=== PATIENT | female | born 1945 | race Caucasian/White ===

== ENCOUNTER → 2021-02-22 | Outpatient (CLI) | payer MEDICARE ==
[~2021-02-22] MED LIST: AMLODIPINE BESYL5 MG PO; ASPIRIN EC81 MG PO; CRESTOR40 MG PO; ELAVIL 50 MG TA50 MG PO; FUROSEMIDE20 MG PO; GLUCOPHAGE 500500 MG PO; ISOSORBIDE DINI30 MG PO; LEVOTHYROXINE112 MCG PO; LOSARTAN-HCTZ1 EAC1 PO; METOPROLOL TART25 MG PO; NEXIUM40 MG PO; NORVASC 5 MG TAB5 MG PO; PERCOCET 5-3251 EACH PO; PLAVIX 75 MG TA75 MG PO; RANEXA500 MG PO; TRAZODONE HCL150 MG PO; ZANTAC 150 MG150 MG PO
== END ==
LOC: US 11:30
DX: R22.41 Localized swelling, mass and lump, right lower limb (principal)
CPT/HCPCS: 93971

== ENCOUNTER 2021-02-28 13:08 | Observation (INO) | payer MEDICARE ==
[~2021-02-28] VITALS: Ht 167.6 cm; Wt 90.7 kg
[~2021-02-28 13:08] MED LIST changes: -AMLODIPINE BESYL5 MG PO; -ASPIRIN EC81 MG PO; -PERCOCET 5-3251 EACH PO
[2021-02-28 15:13] LABS: HEMOGLOBIN 13.2 gm/dl (12.3-15.3); RED BLOOD COUNT 4.36 M/UL (4.00-5.10); WHITE BLOOD COUNT 7.8 K/UL (4.5-11.0)
[2021-02-28 15:44] LABS: BUN/CREATININE RATIO 19 (0-10)
[2021-02-28] MEDS ORDERED: FUROSEMIDE20 MG PO (20:00)
[2021-02-28] MEDS ORDERED: AMLODIPINE BESYL5 MG PO (20:05)
[2021-02-28] MEDS ORDERED: ASPIRIN EC81 MG PO (20:09)
[2021-03-01 04:01] LABS: HEMOGLOBIN 11.6 gm/dl (12.3-15.3); WHITE BLOOD COUNT 6.8 K/UL (4.5-11.0)
[2021-03-01 04:07] LABS: RED BLOOD COUNT 3.9 M/UL (4.00-5.10)
[2021-03-01 04:26] LABS: BUN/CREATININE RATIO 19 (0-10)
[2021-03-01] MEDS ORDERED: PERCOCET 5-3251 EACH PO (17:05)
== END 2021-03-01 17:18 | disposition home or self-care (01) ==
LOC: ER1 13:08 → CDU 17:33 → M/S 17:33
PROVIDERS: Emergency Medicine; Physician Assistant Medical; ADMIT Internal Medicine
DX: I25.119 Atherosclerotic heart disease of native coronary artery with unspecified angina pectoris (principal); S86.011A Strain of right Achilles tendon, initial encounter; E11.9 Type 2 diabetes mellitus without complications; I10 Essential (primary) hypertension; E78.5 Hyperlipidemia, unspecified; J44.9 Chronic obstructive pulmonary disease, unspecified; I65.29 Occlusion and stenosis of unspecified carotid artery; Z95.5 Presence of coronary angioplasty implant and graft; Z85.43 Personal history of malignant neoplasm of ovary; Z86.16 Personal history of COVID-19; Z87.891 Personal history of nicotine dependence; Z88.0 Allergy status to penicillin; Z88.2 Allergy status to sulfonamides; Z79.82 Long term (current) use of aspirin; Z79.02 Long term (current) use of antithrombotics/antiplatelets; Z79.899 Other long term (current) drug therapy; Z20.822 Contact with and (suspected) exposure to COVID-19; X58.XXXA Exposure to other specified factors, initial encounter
CPT/HCPCS: ECHO; 36415; 73590; 73610; 73630; 73718; 78452; 80048; 80053; 82550; 82553; 82962; 83036; 83735; 83874; 83880; 84484; 85025; 85027; 85379; 93005; 93017; 93306; 96374; 96376; 99285; G0378; J2270; J2785; Q9967; U0002

== ENCOUNTER → 2021-07-20 | Outpatient (CLI) | payer MEDICARE ==
[~2021-07-20] MED LIST changes: +AMLODIPINE BESYL5 MG PO; +ASPIRIN EC81 MG PO; +PERCOCET 5-3251 EACH PO
== END ==
LOC: NM 09:00
DX: R06.02 Shortness of breath (principal); R00.2 Palpitations; R60.0 Localized edema; I11.0 Hypertensive heart disease with heart failure; I50.9 Heart failure, unspecified; E78.49 Other hyperlipidemia; R07.9 Chest pain, unspecified; I48.0 Paroxysmal atrial fibrillation; I25.5 Ischemic cardiomyopathy; R55 Syncope and collapse
CPT/HCPCS: 78452; A9502; J2785

== ENCOUNTER → 2021-11-22 | Outpatient (CLI) | payer MEDICARE | LOC: RAD 10-20 08:00 | DX: K21.00 Gastro-esophageal reflux disease with esophagitis, without bleeding (principal); K44.9 Diaphragmatic hernia without obstruction or gangrene | CPT/HCPCS: 74221 ==